=== PATIENT | male | born 1970 | race Caucasian/White ===

== ENCOUNTER 2017-11-12 01:31 | Inpatient (IN) | payer BC ==
[2017-11-12] MEDS ORDERED: SOLU-Medrol 125 MG VIAL ONE (01:34)
[2017-11-12] MEDS ORDERED: SOLU-Medrol 125 MG VIAL IVP ONE (01:38)
[2017-11-12] MEDS ORDERED: DUONEB 0.5 MG/3 MG NEB ONE (01:38)
[2017-11-12] MEDS ORDERED: ATIVAN INJ 2 MG VIAL IVP ONE (01:39)
--- NOTE | 2017-11-12 01:40 | DR.GENAD ---
HPI - HPI Comment HPI Comment: KNOWN ASTHMA PATIENT PATIENT IN SEVERE RESPIRATORY DISTRESS AND DIAPHORETIC THAT STARTED TONIGHT. TOOK NEB RX AND INHALER WITHOUT IMPROVEMENT. RUNNING HIGH FEVER AND COUGHING. CHEST HURTING. - Complaint/Symptoms Chief Complaint Doctors Comments: INCREASING SOB, CHEST TIGHTNESS, FEVER, AND PERSISTENT COUGH NOTED TONIGHT. - Nurses notes reviewed Nurses Notes Review: Yes - Source History Provided: Patient - Mode of Arrival Mode of Arrival: Ambulatory - Timing Came on: Suddenly - Duration Duration: Constant Duration: Days - Severity Severity: Moderate PMH - PMH Past Medical History: Hypertension Past Surgical History: No - Social History Do you use any recreational Drugs:: No ROS - Review of Systems Constitutional: Fever, Weakness, Fatigue. negative: Chills Eyes: negative: Eye Pain, Discharge ENTM: Nose Congestion. negative: Ear Pain, Nose Discharge, Throat Pain Respiratoy: Moist Cough, Short of Breath, Wheezing Cardiovascular: Chest Pain Gastrointestinal/Abdominal: Nausea. negative: Abdominal Pain, Diarrhea, Vomiting Genitourinary: No Symptoms Reported. negative: Discharge, Dysuria, Frequency Neurological: Headache, Weakness, Dizziness Musculoskeletal: Muscle Pain Integumentary: Other (DIAPHORETIC) Hematologic/Lymphatic: No Symptoms Reported Endocrine: No Symptoms Reported All Other Systems: Reviewed and Negative PE - Vital Signs Vitals: Temperature 100.7 F Pulse Rate [Left] 122 Pulse Rate 137 Respiratory Rate 24 Blood Pressure [Right Arm] 148/72 Blood Pressure 172/114 O2 Sat by Pulse Oximetry 91 - General Limitations: No Limitations General Appearance: Alert, In Distress - Head Head Exam: Normal Inspection - Eyes Eye exam: Normal Appearance - ENT ENT Exam: Normal External Ear Exam External Ear Exam: Normal External Inspection TM/Canal Exam: Bilateral Normal Nose Exam: Normal Nose Exam Mouth Exam: Normal Inspection Throat Exam: Normal Inspection, Tonsillar Erythema - Neck Neck Exam: Trachea Midline - Chest Chest Inspection: Symmetric Chest Wall Rise - Respiratory Respiratory Exam: Respiratory Distress Respiratory Exam: Bilateral Wheezing, Bilateral Rhonchi, Upper Wheezing, Upper Rhonchi, Lower Wheezing, Lower Rhonchi - Cardiovascular Cardiovascular Exam: Regular Rate, Normal Rhythm, Normal Heart Sounds - Abdominal Exam Abdominal Exam: Normal Bowel Sounds, Soft. negative: Tenderness - Extremities Extremities Exam: Normal Inspection - Back Back Exam: Normal Inspection - Neurologic Neurological Exam: Alert, Oriented X3, CN II-XII Intact - Psychiatric Psychiatric Exam: Anxious - Skin Skin Exam: Dry, Diaphoresis MDM - Additional Information Additional Information Obtained From: Family - Differential Diagnosis Differential Diagnosis: ACUTE EXACERBATION OF ASTHMA, PNEUMONIA, RESP FAILURE Course - Treatment Treatment: SEE ORDERS. NEB RX, IV STERIODS AND IV ANTIBIOTICS IN ED. - Consultation Consultation Comments: DISCUSS PATIENT WITH DR. BARONE. HE WILL ADMIT PATIENT. - Education/Counseling Education/Counseling: Patient, Family, Education Educated On: Treatment, Diagnosis ROR - Labs Reviewed Laboratory Results Reviewed?: Yes Result Diagrams: 11/12/17 01:57 11/12/17 01:57 Laboratory: WBC 6.6 X10^3/uL (3.6-10.0) 11/12/17 01:57 RBC 4.90 X10^6/uL (4.7-6.0) 11/12/17 01:57 Hgb 16.1 g/dL (13.5-18.0) 11/12/17 01:57 Hct 45.9 % (42.0-54.0) 11/12/17 01:57 MCV 93.6 fL (80.0-100.0) 11/12/17 01:57 MCH 32.8 pg (27.0-34.0) 11/12/17 01:57 MCHC 35.1 g/dL (33.0-35.0) H 11/12/17 01:57 RDW 12.0 % (11.6-16.5) 11/12/17 01:57 Plt Count 72 X10^3/uL (150.0-450.0) L 11/12/17 01:57 MPV 7.7 fL (7.4-11.0) 11/12/17 01:57 Neut % 67.5 % (42.0-75.0) 11/12/17 01:57 Lymph % 15.4 % (21.0-51.0) L 11/12/17 01:57 [place] % 6.7 % (0.0-13.0) 11/12/17 01:57 Eos % 9.7 % (0.9-2.9) H 11/12/17 01:57 Baso % 0.7 % (0.2-1.0) 11/12/17 01:57 Neut # 4.5 x10^3/uL (2.2-4.8) 11/12/17 01:57 Lymph # 1.0 X10^3/uL (1.3-2.9) L 11/12/17 01:57 [place] # 0.4 x10^3/uL (0.3-0.8) 11/12/17 01:57 Eos # 0.6 x10^3/uL (0.0-0.2) H 11/12/17 01:57 Baso # 0.0 X10^3/uL (0.0-0.1) 11/12/17 01:57 Absolute Nucleated RBC 0.3 /100WBC 11/12/17 01:57 Sample Site Rbra 11/12/17 03:25 ABG pH 7.470 (7.35-7.45) H 11/12/17 03:25 ABG pCO2 33.0 mmHg (35.0-45.0) L 11/12/17 03:25 ABG pO2 61.0 mmHg (80.0-100.0) L 11/12/17 03:25 ABG HCO3 24.0 mmol/L (22-26) 11/12/17 03:25 ABG O2 Saturation 93.0 % (90-100) 11/12/17 03:25 ABG Base Excess 0.8 mmol/L (-2.0-2.0) 11/12/17 03:25 Andrey Test Na 11/12/17 03:25 A-a Gradient 47.0 mmHg 11/12/17 03:25 FiO2 21.000 11/12/17 03:25 Blood Gas Comments Layo abg well-mtf 11/12/17 03:25 Sodium 135 mmol/L (136-145) L 11/12/17 01:57 Corrected Sodium 136 mmol/L (136-145) 11/12/17 01:57 Potassium 3.6 mmol/L (3.5-5.1) 11/12/17 01:57 Chloride 97 mmol/L (98-107) L 11/12/17 01:57 Carbon Dioxide 25.9 mmol/L (21-32) 11/12/17 01:57 BUN 5 mg/dL (7-18) L 11/12/17 01:57 Creatinine 1.03 mg/dL (0.70-1.30) 11/12/17 01:57 Est GFR (MDRD) Af Amer > 60 (>60) 11/12/17 01:57 Est GFR (MDRD) Non-Af > 60 (>60) 11/12/17 01:57 Glucose 121 mg/dL (65-99) H 11/12/17 01:57 Calcium 9.3 mg/dL (8.5-10.1) 11/12/17 01:57 Corrected Calcium TNP 11/12/17 01:57 Total Bilirubin 0.40 mg/dL (0.2-1.0) 11/12/17 01:57 AST 40 Units/L (15-37) H 11/12/17 01:57 ALT 64 Units/L (12-78) 11/12/17 01:57 Alkaline Phosphatase 81 Units/L (46-116) 11/12/17 01:57 C-Reactive Protein 68.50 mg/L (0-3.0) H 11/12/17 01:57 Total Protein 8.1 g/dL (6.4-8.2) 11/12/17 01:57 Albumin 3.9 g/dL (3.4-5.0) 11/12/17 01:57 Globulin 4.2 g/dL (2.5-4.5) 11/12/17 01:57 Albumin/Globulin Ratio 0.9 Ratio (1.1-2.1) L 11/12/17 01:57 Influenza Type A (PCR) Positive (NEGATIVE) A 11/12/17 01:50 Influenza Type B (PCR) Negative (NEGATIVE) 11/12/17 01:50 - XRAY XRAY Interpreted by: Radiologist XRAY Findings: REPORT DISCUSS WITH PATIENT AND FAMILY. - Diagnosis Discharge Problem: Respiratory distress, Hypoxia, Bronchitis, Influenza Acute asthma exacerbation Qualifiers: Asthma severity: severe Asthma persistence: persistent Qualified Code(s): J45.51 - Severe persistent asthma with (acute) exacerbation Chest pain Qualifiers: Chest pain type: chest pain on breathing Qualified Code(s): R07.1 - Chest pain on breathing - Discharge Plan Disposition: ADMITTED INPATIENT Condition: Stable - Follow ups/Referrals - Instructions
[2017-11-12] MEDS ORDERED: TORADOL 30 MG VIAL ONE (01:46)
[2017-11-12] MEDS ORDERED: TORADOL 30 MG VIAL IVP ONE ×2 (01:46→02:02)
[2017-11-12] MEDS ORDERED: ATIVAN INJ 2 MG VIAL ONE (01:47)
[2017-11-12] MEDS ORDERED: XOPENEX 1.25 MG/3 ML NEBULE NEB ONE ×2 (01:57→02:01)
[2017-11-12] MEDS ORDERED: NS 100 ML IV 100 ML IV ONE (02:05)
[2017-11-12] MEDS ORDERED: MAGNESIUM SULFATE 1 GM/100 mL PREMIX 1 GM/100 ML BAG IV ONE (02:05)
[2017-11-12] MEDS ORDERED: MAGNESIUM SULFATE 50% INJ ONE (02:05)
[2017-11-12 02:18] LABS: BLOOD UREA NITROGEN 5 mg/dL (7-18); CALCIUM 9.3 mg/dL (8.5-10.1); CARBON DIOXIDE 25.9 mmol/L (21-32); CHLORIDE 97 mmol/L (98-107); COR NA(FOR HYPERGLY) 136 mmol/L (136-145); CREATININE 1.03 mg/dL (0.70-1.30); SODIUM 135 mmol/L (136-145); eGFR BLACK RACES > 60 (>60); eGFR NON BLACK RACES > 60 (>60)
--- NOTE | 2017-11-12 02:20 | RAD ---
AP Chest Indication: Shortness of breath and fever Comparison: None available Findings: The trachea is midline. The cardiac silhouette is unremarkable. The lungs are clear without focal i nfiltrate or effusion. The bony thorax is unremarkable. IMPRESSION: 1. No acute cardiopulmonary abnormality. Reported By:
[2017-11-12 02:48] LABS: BASOPHILS % (AUTO) 0.7 % (0.2-1.0); EOSINOPHILS # (AUTO) 0.6 x10^3/uL (0.0-0.2); EOSINOPHILS % (AUTO) 9.7 % (0.9-2.9); HEMATOCRIT 45.9 % (42.0-54.0); HEMOGLOBIN 16.1 g/dL (13.5-18.0); LYMPHOCYTES % (AUTO) 15.4 % (21.0-51.0); MEAN CORPUSCULAR HEMOGLOBIN 32.8 pg (27.0-34.0); MEAN CORPUSCULAR HGB CONC 35.1 g/dL (33.0-35.0); MEAN CORPUSCULAR VOLUME 93.6 fL (80.0-100.0); MEAN PLATELET VOLUME 7.7 fL (7.4-11.0); MONOCYTES # (AUTO) 0.4 x10^3/uL (0.3-0.8); MONOCYTES % (AUTO) 6.7 % (0.0-13.0); NEUTROPHILS # (AUTO) 4.5 x10^3/uL (2.2-4.8); NEUTROPHILS % (AUTO) 67.5 % (42.0-75.0); WHITE BLOOD COUNT 6.6 X10^3/uL (3.6-10.0)
[2017-11-12 03:00] LABS: PLATELET COUNT 72 X10^3/uL (150.0-450.0)
[2017-11-12] MEDS ORDERED: ROCEPHIN VIAL 1 GM 1 GM in NS 100 ML IV + SPIKE MINIBAG* 100 ML IV ONE (03:07)
[2017-11-12] MEDS ORDERED: TYLENOL 500 MG TAB EXTRA STRENGTH PO ONE ×2 (03:08→03:27)
[2017-11-12 03:10] LABS: ALANINE AMINOTRANSFERASE 64 Units/L (12-78); ALBUMIN 3.9 g/dL (3.4-5.0); ALKALINE PHOSPHATASE 81 Units/L (46-116); ASPARTATE AMINO TRANSFERASE 40 Units/L (15-37); TOTAL PROTEIN 8.1 g/dL (6.4-8.2)
[2017-11-12] MEDS ORDERED: ROCEPHIN VIAL 1 GM ONE (03:27)
[2017-11-12 03:43] LABS: ABG BASE EXCESS 0.8 mmol/L (-2.0-2.0)
[2017-11-12] MEDS: ROCEPHIN VIAL 1 GM 1 GM in NS 100 ML IV + SPIKE MINIBAG* 100 ML IV SCH ×2 (05:14→08:15)
[2017-11-12] MEDS: DUONEB 0.5 MG/3 MG NEB SCH ×5 (05:30→20:40)
[2017-11-12 05:39] VITALS: BMI 23.7
[2017-11-12] MEDS ORDERED: NS 100 ML IV + SPIKE MINIBAG* 100 ML IV ONE (07:58)
[2017-11-12] MEDS ORDERED: PATIENT'S HOME MEDICATION (Fluticasone-Salmeterol 250/50 1 PUFF) INH SCH (10:00)
[2017-11-12] MEDS: TAMIFLU PO SCH ×2 (10:01→20:55)
[2017-11-12] MEDS: TOPROL XL PO ONE ×2 (10:29→10:31)
[2017-11-12] MEDS: TOPROL XL PO SCH (10:38)
[2017-11-12] MEDS: HYZAAR 50/12.5 MG PO SCH (10:39)
[2017-11-12] MEDS: SINGULAIR TAB 10 MG PO SCH ×2 (10:51→20:55)
[2017-11-12] MEDS: FLONASE NASAL SPRAY ENOSTRIL SCH (10:51)
[2017-11-12] MEDS: ASTELIN NASAL SPRAY ENOSTRIL SCH ×3 (10:51→21:27)
[2017-11-12] MEDS: PULMICORT NEB TX 0.5 MG NEB SCH ×2 (14:10→20:40)
[2017-11-12] MEDS ORDERED: TESSALON PERLES PO PRN (15:36)
[2017-11-12] MEDS ORDERED: TUSSIONEX PENNKINETIC SUSP PO PRN (15:37)
[2017-11-12] MEDS ORDERED: BENADRYL CAP/TAB 25 MG PO SCH (21:00)
[2017-11-13] MEDS: DUONEB 0.5 MG/3 MG NEB SCH ×3 (00:33→09:00)
[2017-11-13] MEDS: ASTELIN NASAL SPRAY ENOSTRIL SCH (05:11)
[2017-11-13 06:27] LABS: BASOPHILS # (AUTO) 0.1 X10^3/uL (0.0-0.1); BASOPHILS % (AUTO) 0.5 % (0.2-1.0); EOSINOPHILS % (AUTO) 0.2 % (0.9-2.9); HEMATOCRIT 48.9 % (42.0-54.0); HEMOGLOBIN 17.2 g/dL (13.5-18.0); LYMPHOCYTES # (AUTO) 1.4 X10^3/uL (1.3-2.9); LYMPHOCYTES % (AUTO) 12.8 % (21.0-51.0); MEAN CORPUSCULAR HGB CONC 35.2 g/dL (33.0-35.0); MEAN CORPUSCULAR VOLUME 93.7 fL (80.0-100.0); MEAN PLATELET VOLUME 8.5 fL (7.4-11.0); MONOCYTES # (AUTO) 0.7 x10^3/uL (0.3-0.8); MONOCYTES % (AUTO) 6.7 % (0.0-13.0); NEUTROPHILS # (AUTO) 8.5 x10^3/uL (2.2-4.8); NEUTROPHILS % (AUTO) 79.8 % (42.0-75.0); PLATELET COUNT 189 X10^3/uL (150.0-450.0); RED BLOOD COUNT 5.22 X10^6/uL (4.7-6.0); RED CELL DISTRIBUTION WIDTH 12.3 % (11.6-16.5); WHITE BLOOD COUNT 10.6 X10^3/uL (3.6-10.0)
[2017-11-13 07:21] LABS: ALANINE AMINOTRANSFERASE 54 Units/L (12-78); ALBUMIN 3.8 g/dL (3.4-5.0); ALKALINE PHOSPHATASE 68 Units/L (46-116); ASPARTATE AMINO TRANSFERASE 35 Units/L (15-37); BLOOD UREA NITROGEN 9 mg/dL (7-18); CALCIUM 9.2 mg/dL (8.5-10.1); CARBON DIOXIDE 22.7 mmol/L (21-32); CHLORIDE 97 mmol/L (98-107); COR NA(FOR HYPERGLY) 135 mmol/L (136-145); CREATININE 1.21 mg/dL (0.70-1.30); SODIUM 135 mmol/L (136-145); eGFR BLACK RACES > 60 (>60); eGFR NON BLACK RACES > 60 (>60)
--- NOTE | 2017-11-13 07:21 | RAD ---
HISTORY: Fever, shortness of breath Study: Chest AP portable Comparison: 11/12/2017 Findings: The heart is within normal limits in size. The johnny are normal. The lungs are well inflated and free of acute alveolar infiltrates. No pleural effusions are identified. The bony thorax is unremarkable. IMPRESSION: Lungs clear Reported By:
[2017-11-13] MEDS ORDERED: TOPROL XL PO ONE (08:08)
[2017-11-13] MEDS: PULMICORT NEB TX 0.5 MG NEB SCH (09:00)
[2017-11-13] MEDS: FLONASE NASAL SPRAY ENOSTRIL SCH (09:40)
[2017-11-13] MEDS: ROCEPHIN VIAL 1 GM 1 GM in NS 100 ML IV + SPIKE MINIBAG* 100 ML IV SCH (09:40)
[2017-11-13] MEDS: HYZAAR 50/12.5 MG PO SCH (09:40)
[2017-11-13] MEDS: TAMIFLU PO SCH (09:40)
[2017-11-13] MEDS: TOPROL XL PO SCH (09:41)
[2017-11-13 12:09] VITALS: BP 131/86
== END 2017-11-13 12:35 | disposition home or self-care (01) | DRG 203 ==
LOC: ER 01:31 → OBS 04:48
PROVIDERS: ADMIT Obstetrics & Gynecology Obstetrics; ATTEND Obstetrics & Gynecology Obstetrics
DX: J45.51 Severe persistent asthma with (acute) exacerbation (principal); R09.02 Hypoxemia; J11.1 Influenza due to unidentified influenza virus with other respiratory manifestations; R06.03 Acute respiratory distress; B96.89 Other specified bacterial agents as the cause of diseases classified elsewhere; R06.02 Shortness of breath; R07.1 Chest pain on breathing
CPT/HCPCS: 36415; 36600; 71045; 80053; 82803; 85025; 86140; 87040; 87070; 87077; 87186; 87205; 87502; 94640; 94760; 96365; 96374; 96375; 99283; 99284; A4216; A4222; G9035; J0696; J1885; J2060; J2930; J3475; J7620; J7626